=== PATIENT | male | born 1985 | race Asian ===

== ENCOUNTER 2025-03-03 07:41 | Emergency (ER) | payer MEDICAID ==
[~2025-03-03] VITALS: Ht 172.7 cm; Wt 85.0 kg
[2025-03-03 07:42] VITALS: O2SAT 98
[2025-03-03] MEDS ORDERED: IBUPROFEN 800MG TABLET PO ONE (08:15)
[2025-03-03] MEDS: IBUPROFEN 800MG TABLET PO NR (08:32)
[2025-03-03 08:52] VITALS: BP 123/87; PULSE 64; RESP 16; TEMP 36.5; O2SAT 100
== END 2025-03-03 09:03 | disposition home or self-care (01) ==
LOC: ER 07:51
DX: S00.83XA Contusion of other part of head, initial encounter (principal); T14.8XXA Other injury of unspecified body region, initial encounter; M25.531 Pain in right wrist; Y08.89XA Assault by other specified means, initial encounter; Y93.89 Activity, other specified; Y92.89 Other specified places as the place of occurrence of the external cause; Y99.8 Other external cause status
CPT/HCPCS: 73100; 99283